=== PATIENT | female | born 1990 | race Caucasian/White ===

== ENCOUNTER 2017-05-04 08:03 | Outpatient (CLI) | payer BC ==
[2017-05-04] MEDS ORDERED: Iopamidol 370 76% 100 ML VIAL ONE (09:00)
--- NOTE | 2017-05-04 17:32 | CT ---
CT ABDOMEN AND PELVIS WITH AND WITHOUT CONTRAST: 05/04/17 HISTORY: Intermittent left upper quadrant pain. COMPARISON: None. FINDINGS: On the noncontrast evaluation there is no nephroureterolithiasis or hydroureteronephrosis. No abnorma l calcifications in the abdomen. The lung bases are clear. No pericardial effusion. The appendix is visualized and is normal. No dilated loops of large or small bowel. The aortoiliac contour is normal. The kidneys are unremarkable. Pancreas, spleen, liver, gallbladder are all normal. Skeleton is unremarkable. IMPRESSION: 1. No acute abnormality in the abdomen or pelvis. No findings to explained to patient's left upp er quadrant pain. 2. Too small to characterized hypodensities in hepatic segment Breann, IVb, and V although statisti paul likely cysts. POS: KAREN
== END 2017-05-04 08:04 | disposition home or self-care (01) ==
LOC: SCSCT 08:03
PROVIDERS: ATTEND Family Medicine
DX: R10.9 Unspecified abdominal pain (principal)
CPT/HCPCS: 74178

== ENCOUNTER 2017-05-04 16:36 | Emergency (ER) | payer BC ==
[2017-05-04] MEDS ORDERED: Dexamethasone 4 MG TAB ONE (16:45)
[2017-05-04] MEDS ORDERED: Dexamethasone 1 MG TAB ONE (16:45)
[2017-05-04] MEDS ORDERED: diphenhydrAMINE 25 MG CAP ONE (16:47)
== END 2017-05-04 17:40 | disposition home or self-care (01) ==
LOC: SCSER 16:36
DX: R21 Rash and other nonspecific skin eruption (principal); T36.0X5A Adverse effect of penicillins, initial encounter; Z79.899 Other long term (current) drug therapy
CPT/HCPCS: 74178; 99282; J8540